=== PATIENT | female | born 1980 | race Caucasian/White ===

== ENCOUNTER 2017-11-03 21:31 | Emergency (ER) | payer BC ==
[~2017-11-03] VITALS: Ht 170.2 cm; Wt 61.2 kg
[~2017-11-03 21:31] MED LIST: ALBU90OI6 INH; Inderal60 MG; MULVITMINE; NAPR500 PO; NAPR500EC PO; OXYACE5T PO; OXYC5; SUMA6I SC
[2017-11-03 21:52] LABS: Source, Urine Clean Catch
[2017-11-03 22:06] LABS: Appearance, Urine Cloudy (Clear); Bilirubin, Urine Neg (Neg); Blood, Urine 5+ (Neg); Color, Urine Amber (P-Yellow); Glucose Qualitative, Urine Neg (Neg); Ketones, Urine Neg (Neg); Leukocyte Esterase, Urine 3+ (Neg); Nitrite, Urine Pos (Neg); Protein, Urine 4+ (Neg); Urobilinogen, Urine NORM (Normal)
[2017-11-03 22:14] LABS: Bacteria Many /hpf; Red Blood Cells, Urine TNTC /hpf (0-2); Squamous Epithelial Cells Few /hpf (Few); White Blood Cells, Urine 50-100 /hpf (0-5)
[2017-11-03] MEDS ORDERED: Pyridium200 MG PO (22:16)
[2017-11-03] MEDS ORDERED: CEPH500 PO (22:16)
== END 2017-11-03 22:37 | disposition home or self-care (01) ==
LOC: ER 21:31
PROVIDERS: Emergency Medicine
DX: N39.0 Urinary tract infection, site not specified (principal); F17.200 Nicotine dependence, unspecified, uncomplicated; Z88.0 Allergy status to penicillin
CPT/HCPCS: 81001; 81025; 87077; 87086; 87186; 99283

== ENCOUNTER 2019-03-24 00:17 | Emergency (ER) | payer BC ==
[~2019-03-24] VITALS: Ht 170.2 cm; Wt 66.2 kg
[~2019-03-24 00:17] MED LIST changes: +CEPH500 PO; +Pyridium200 MG PO
== END 2019-03-24 03:15 | disposition home or self-care (01) ==
LOC: ER 00:17
DX: S01.411A Laceration without foreign body of right cheek and temporomandibular area, initial encounter (principal); G43.909 Migraine, unspecified, not intractable, without status migrainosus; F17.200 Nicotine dependence, unspecified, uncomplicated; Z88.0 Allergy status to penicillin; W01.0XXA Fall on same level from slipping, tripping and stumbling without subsequent striking against object, initial encounter
CPT/HCPCS: 12013; 99282

== ENCOUNTER → 2019-11-16 | Outpatient (CLI) | payer BC ==
[2019-11-17 21:06] LABS: CHLAMYDIA TRACHOMATIS, NAA Negative (Negative); NEISSERIA GONORRHOEAE, NAA Negative (Negative)
== END | disposition home or self-care (01) ==
LOC: LAB 11:49 → LAB SHORT 11:49
PROVIDERS: Nurse Practitioner Family
DX: N93.9 Abnormal uterine and vaginal bleeding, unspecified (principal)
CPT/HCPCS: 87491; 87591